=== PATIENT | male | born 1960 | race Caucasian/White ===

== ENCOUNTER 2018-02-28 04:12 | Emergency (ER) | payer SELFPAY ==
[2018-02-28] MEDS ORDERED: Alum Hydrox/Mag Hydrox/Simeth 30 ML, Lidocaine 2% 15 ML PO ONE ×2 (04:43)
--- NOTE | 2018-02-28 07:57 | CR ---
Chest: Two views of the chest were obtained. Comparison: No prior chest x-ray. Heart size and mediastinum are normal. Lungs are clear. Bony structures are unremarkable. Impression: 1. Nothing acute is seen on two-view chest x-ray. Diagnostic code #1
--- NOTE | 2018-02-28 13:16 | ER ---
REASON FOR EMERGENCY ROOM VISIT: Chest and epigastric pain. HISTORY OF PRESENT ILLNESS: This is a 57-year-old gentleman who has a history of STEMI back in August and underwent a stent placement in [place], [place]. This evening, he checked his blood pressure and noticed to be high with diastolics in the 90s to 100s, and this caused him to get some anxiety. Along with this, he states that he was having some "indigestion" with some substernal burning discomfort that lingered. He checked his blood pressure again and it seemed like his sternal discomfort got higher as he noticed his blood pressure to be higher. He decided to come in and be checked. The patient did not experience any nausea, vomiting, arm pain, neck pain, or back pain with this. He did not experience any diaphoresis. 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 PAST MEDICAL HISTORY: 1. STEMI. 2. Hypertension. 3. Hyperlipidemia. 4. Past history of smoking. CURRENT MEDICATIONS: Include: 1. Metoprolol. 2. Atorvastatin. 3. Lisinopril. 4. Baby aspirin. 5. Brilinta. ALLERGIES: None to medications. FAMILY HISTORY: His father from an CT at age 83. His paternal grandfather at age 39 from an [address]. His mother is alive and well. He has 2 sisters who are alive and well. He has a daughter who has type 1 diabetes. SOCIAL HISTORY: He is a nonsmoker. He works as a truck trailer mechanic. He drinks occasionally. REVIEW OF SYSTEMS: All pertinent positives and negatives as listed in the HPI. PHYSICAL EXAMINATION: VITAL SIGNS: He is afebrile. Blood pressure 161/90, respirations 10, heart rate is 87, O2 sats 95% on room air. HEENT: Head is normocephalic. No scleral icterus are noted. Oropharynx is normal. NECK: Supple. No adenopathy or JVD. No bruits. CHEST: Clear to auscultation with good air exchange and no rhonchi, rales, or wheezes noted. CARDIAC: Regular rate without murmur. No rub. ABDOMEN: Nondistended, obese, soft, nontender. Serna sign is negative. No hepatosplenomegaly or other palpable masses. EXTREMITIES: Normal pulses. No edema. NEUROLOGIC: Cranial nerves 2 through 12 are intact. He moves all 4 extremities equally well. LABORATORY DATA: His WBC is 9.4 with a hemoglobin of 14.7. His CMP is unremarkable with normal electrolytes and renal function, and no elevation of his liver enzymes. His troponin was less than 0.017. A 12-lead EKG revealed no acute changes. PA and lateral chest x-ray revealed no active pulmonary disease. COURSE IN THE EMERGENCY ROOM: Further emergency room course: He was given a GI cocktail of Mylanta and lidocaine. This is viscous lidocaine and his "indigestion" resolves promptly. By this time, however, his discomfort was very minimal, but it did nonetheless resolve. IMPRESSION: 1. Epigastric and lower substernal discomfort, likely gastrointestinal in origin. No evidence of myocardial ischemia. 2. Hypertension, possibly inadequately controlled. Needs following. 3. Obesity. 4. History of ST-elevation myocardial infarction. PLAN: He was very reassured after this visit, especially after the GI cocktail seemed to get rid of his symptoms, but he was quite jocular and relaxed throughout the entire evaluation. I strongly urged him to get in contact with the primary care provider if he is going to be up in this area most of the year. He should be seeing somebody at least on an annual basis given his history and family history in particular. He understands and agrees. All questions were answered. DL /[id number]
== END 2018-02-28 06:24 | disposition home or self-care (01) ==
LOC: JD.ED 04:12
DX: R10.13 Epigastric pain (principal); R07.2 Precordial pain; I10 Essential (primary) hypertension; E66.9 Obesity, unspecified; I25.2 Old myocardial infarction; E78.5 Hyperlipidemia, unspecified; Z87.891 Personal history of nicotine dependence; Z79.82 Long term (current) use of aspirin; Z79.899 Other long term (current) drug therapy; Z68.36 Body mass index [BMI] 36.0-36.9, adult
CPT/HCPCS: 36415; 71046; 80053; 84484; 85025; 93005; 99285; A9270; 99283